=== PATIENT | female | born 1985 | race Caucasian/White ===

== ENCOUNTER 2020-10-24 17:17 | Emergency (ER) | payer OTHER, SELFPAY ==
[2020-10-24 17:48] VITALS: BP 111/87; PULSE 66; RESP 18; TEMP 36; O2SAT 97; BMI 28.7
--- NOTE | 2020-10-24 18:07 | HMH.EDUTC ---
[facility] [place]: [place]al syndrome Disposition: Home, Self-Care Condition on Discharge: Good Instructions: DI for COVID-19 (Suspected or Confirmed ), Preventing the Spread of Coronavirus Discharge Instructions Additional Instructions: Avoid contact with the offending substance (poison delvin). Don't start the oral steroids until tomorrow. Don't put the topical steroids (triamcinolone) on your face or your groin. Follow up with your regular doctor. GO TO THE ER FOR ANY WORSENING SYMPTOMS OR CONCERNS Prescriptions: Brompheniramine/Pseudoephed/Dm [Bromfed Dm Cough Syrup] 5 ml PO Q6HP PRN #240 ml PRN Reason: Cough Transmission Status: Received by [facility] Ondansetron [Zofran 4mg ODT] 4 mg PO DAILYP PRN #12 tab PRN Reason: Nausea Transmission Status: Received by [facility] Referrals: Sahara Benoit PA [Primary Care Provider] - Time of Disposition: 18:12 Medical Decision Making - Medical Records Medical records reviewed: No: I reviewed the patient's medical records. - Yazan Inquiry Pt receiving controlled substance: No Vital Signs: 10/24/20 17:48 Temperature 96.8 F L Temperature Source Oral Pulse Rate [Apical] 66 Respiratory Rate 18 Blood Pressure [Right Arm] 111/87 Blood Pressure Mean [Right Arm] 95 Blood Pressure Source [Right Arm] Automatic Cuff Blood Pressure Position [Right Arm] Supine 02 Sat by Pulse Oximetry 97 Oxygen Delivery Method Room Air - Lab Data Lab Results 10/24/20 17:34: SARS-CoV-2 (PCR) Detected A, Influenza A Untype (PCR) Not detected, Influenza Type B (PCR) Not detected [facility] [place] - General Stated complaint: exposes,Cough,CONDE,Weekness,congesion Time Seen by Provider: 10/24/20 18:07 Mode of Arrival: Ambulatory Source of Information: Patient Limitations: No Limitations Description of Symptoms (Recalled from Triage Doc. by RN): loss of taste and smell, cough, headache HEENT Symptoms (Recalled from RN notes): Yes Resp Symptoms (Recalled from RN notes): No Skin Symptoms (Recalled from RN notes): No MS Symptoms (Recalled from RN notes): No Functional Status (Recalled from RN notes): na - History of Present Illness Provider Complaint: She states that she has felt bad since yesterday evening. She was exposed to covid-19 about 5 days ago. She c/o altered sense of taste and smell, scratchy throat, fatigue and body aches. She has been vaccinated against covid. - Related Data Home Medications Medication Instructions Recorded Confirmed levothyroxine 25 mcg tablet 25 mcg PO ONCE tab 03/08/17 12/05/19 norethindrone 1 mg-e. estradiol 20 1 tab PO QDAY 03/08/17 12/05/19 mcg (24)-iron 75 mg (4) chew tablet cetirizine 10 mg tablet 10 mg PO DAILY 02/07/19 12/05/19 Previous Rx's Medication Instructions Recorded Brompheniramine/Pseudoephed/Dm 5 ml PO Q6HP PRN #240 ml 10/24/20 [Bromfed Dm Cough Syrup] Ondansetron [Zofran 4mg ODT] 4 mg PO DAILYP PRN #12 tab 10/24/20 Allergies Allergy/AdvReac Type Severity Reaction Status Date / Time No Known Allergies Allergy Verified 12/05/19 17:47 - Worker's Comp Is this a Worker's Comp case?: No [facility] History - Hepatitis A Screen Drug use history?: No High risk sexual behaviors?: No History of sexually transmitted infection?: No Currently employed?: No Childcare worker?: No Do you have indoor plumbing?: Yes Do you have electricity?: Yes Attestation statement:: This patient has been screened for Hepatitis A risk factors. I have reviewed the patient's past medical history: Yes Other Medical History: Reports: Hypothyroidism Other Surgeries: Yes: No Previous Surgery - Social History Smoking Status: Never smoker Alcohol Intake: current Alcohol Intake Frequency:: holidays/special occasions only Substance Use Type: denies use Occupational Status: employed Family Hx:: Thyroid Disorder, Hypertension, Cancer, Diabetes, Heart Attack, Coronary Artery Disease ROS [place]
[2020-10-24 18:21] LABS: Influenza A, PCR Not Detected (NotDetected); Influenza B, PCR Not Detected (NotDetected)
[2020-10-24 18:49] LABS: Coronavirus 19, PCR Detected (NotDetected)
[2020-10-24 19:11] VITALS: BP 111/87; PULSE 66; RESP 18; TEMP 36; O2SAT 97
== END 2020-10-24 19:13 | disposition home or self-care (01) ==
PROVIDERS: Emergency Provider Nurse Practitioner Family; PCP Physician Assistant
DX: U07.1 COVID-19 (principal); B34.9 Viral infection, unspecified
CPT/HCPCS: 99202; C9803; G0463; U0003; U0005

== ENCOUNTER → 2021-07-22 08:11 | Outpatient (CLI) | payer OTHER, SELFPAY ==
[2021-07-22 08:35] LABS: Basophils # 0.3 K/mm3 (0-0.2); Basophils % 3.7 % (0.1-2.0); Eosinophils # 0.4 K/mm3 (0.0-0.4); Eosinophils % 4.1 % (0.1-12.0); Hemoglobin 14.9 g/dL (12.2-16.2); Lymphocytes # 3.4 K/mm3 (0.7-4.5); Lymphocytes % 37.6 % (10-50); Mean Corpuscular HGB Conc 34.7 g/dL (31.8-35.4); Mean Corpuscular Hemoglobin 29.9 pg (27.0-31.2); Mean Corpuscular Volume 86.2 fl (81-99); Mean Platelet Volume 8.1 fl (7.4-10.4); Monocytes # 0.5 K/mm3 (0.1-1.0); Neutrophils # 4.5 K/mm3 (1.8-7.8); Neutrophils % 49.7 % (37.0-80.0); Platelet Count 328 K/mm3 (142-424); Red Blood Count 4.99 M/mm3 (4.20-5.40)
[2021-07-22 09:53] LABS: Alanine Aminotransferase 32 U/L (12-78); Albumin Level 4.3 g/dl (3.5-5.0); Albumin/Globulin Ratio 1.4 (1.1-1.8); Alkaline Phosphatase 95 U/L (38-126); Anion Gap 12.3 mEq/L (5-15); Aspartate Amino Transferase 39 U/L (14-36); Bilirubin,Total 0.5 mg/dl (0.2-1.3); Blood Urea Nitrogen 11 mg/dl (7-17); Calcium 9.6 mg/dl (8.4-10.2); Carbon Dioxide 25 mmol/L (22.0-30.0); Chloride 104 mmol/L (98-107); Estimated Glomerular Filt Rate 72 ml/min (>60); GFR (African American) 87 ML/MIN (>60); Glucose 98 mg/dl (74-100); Potassium 4.3 mmoL/L (3.5-5.1); Sodium 137 mmol/L (136-145); Total Protein,Serum 7.3 g/dl (6.3-8.2)
[2021-07-22 10:07] LABS: Free T4 (Free Thyroxine) 1.17 ng/dl (0.78-2.19)
[2021-07-22 10:09] LABS: 25-OH Vitamin D, Total 39.1 ng/mL (30-100)
[2021-07-22 10:22] LABS: Thyroid Stimulating Hormone 2.86 uIU/mL (0.465-4.68)
[2021-07-23 11:42] LABS: Thyroid Peroxidase Antibodies 14 IU/mL (0-34)
[2021-07-23 23:23] LABS: Thyroglobulin Level <1.0 IU/mL (0.0-0.9)
[2021-07-26 15:22] LABS: C1 Esterase Inhibitor 38 mg/dL (21-39)
[2021-07-26 17:10] LABS: C1 Est.Inhib.Funct. 96 (.)
[2021-07-29 11:12] LABS: Immunoglobulin E, Total 14 IU/mL (6-495)
[2021-08-11 07:49] LABS: Antinuclear Antibodies (ANA) Negative
== END ==
PROVIDERS: PCP Family Medicine; Visit Provider Nurse Practitioner
DX: L50.9 Urticaria, unspecified (principal); Z79.899 Other long term (current) drug therapy
CPT/HCPCS: 36415; 80053; 82306; 82785; 83520; 84439; 84443; 85025; 86038; 86161; 86352; 86376; 86800

== ENCOUNTER 2022-01-03 15:30 | Emergency (ER) | payer OTHER, SELFPAY ==
--- NOTE | 2022-01-03 17:02 | EXP.UTC ---
Discharge Plan Disposition Patient Disposition: Home, Self-Care Condition: Good Prescriptions Prescriptions: New azithromycin [Zithromax] 250 mg tablet 250 mg PO UD DOSE PK Qty: 6 0RF Rx Instructions: Take two (2) tablets today, then one (1) tablet days #2 thru #5 benzonatate [benzonatate] 100 mg capsule 100 mg PO TIDP PRN (Reason: Cough) Qty: 30 0RF methylprednisolone 4 mg Tablets,Dose Pack 4 mg PO DIRECTED Qty: 21 0RF No Action levothyroxine [Synthroid] 25 mcg tablet 25 mcg PO ONCE norethindrone-e.estradiol-iron [Mibelas 24 Fe] 1 mg-20 mcg(24) /75 mg (4) tablet,chewable 1 tab PO QDAY cetirizine [Zyrtec] 10 mg tablet 10 mg PO DAILY ondansetron 4 MG tablet,disintegrating 4 mg PO DAILYP PRN (Reason: Nausea) Qty: 12 0RF njhsjbhaeixzcvb-kfqtraard-ZG 118 ML syrup 5 ml PO Q6HP PRN (Reason: Cough) Qty: 240 0RF Referrals Follow up/Referrals: Sahara Benoit PA [Primary Care Provider] - See instructions Activity Restrictions/Add. Instructions Additional Instructions/Restrictions: Drink plenty of fluids. Take tylenol or ibuprofen for pain or fever. Take the medications as directed. Follow up with your regular doctor. GO TO THE ER FOR ANY WORSENING SYMPTOMS Clinical Impressions Clinical Impression: Viral syndrome Stand Alone Forms Stand Alone Forms: Work/School Release Instructions Patient Instructions: DI for Viral Syndrome, DI for Acute Bronchitis Discharge ED Provider: Hiram Coyle [facility] General Stated complaint: fever/chills, cough, body aches Time Seen by Provider: 01/03/22 17:00 History of Present Illness Provider Complaint: She states that she has felt bad since this morning. At this time she has worsening body aches, chills, sore throat, and malaise. Related Data Home Medications Medication Instructions Recorded Confirmed levothyroxine 25 mcg tablet 25 mcg PO ONCE 03/08/17 12/05/19 (Synthroid) norethindrone 1 mg-e. estradiol 20 1 tab PO QDAY 03/08/17 12/05/19 mcg (24)-iron 75 mg (4) chew tablet (Mibelas 24 Fe) cetirizine 10 mg tablet (Zyrtec) 10 mg PO DAILY 02/07/19 12/05/19 Previous Rx's Medication Instructions Recorded mgbzpdyiclkdxyr-avrmochicccwhcd-BL 5 ml PO Q6HP PRN Cough #240 mL 10/24/20 2 mg-30 mg-10 mg/5 mL oral syrup ondansetron 4 mg disintegrating 4 mg PO DAILYP PRN Nausea #12 tabs 10/24/20 tablet azithromycin 250 mg tablet 250 mg PO UD DOSE PK #6 tabs 01/03/22 (Zithromax) benzonatate 100 mg capsule 100 mg PO TIDP PRN Cough #30 caps 01/03/22 methylprednisolone 4 mg tablets in 4 mg PO DIRECTED #21 tabs 01/03/22 a dose pack Allergies Allergy/AdvReac Type Severity Reaction Status Date / Time No Known Allergies Allergy Verified 01/03/22 17:15 PFSH PFSH Social History Smoking Status: Never smoker alcohol intake: current substance use type: denies use current occupational status: employed Travel in the last 8 weeks: None ROS Obtained: Yes All systems reviewed & no additional complaints except as documented Constitutional Constitutional: Reports chills and Reports fever(s) Eyes Eyes: Denies eye discharge ENT Ears, Nose, Mouth, and Throat: Reports as per HPI Cardiovascular Cardiovascular: Denies chest pain Respiratory Respiratory: Denies chest congestion and Reports cough Gastrointestinal Gastrointestingal: Reports nausea; Denies abdominal pain, constipation, cramping, diarrhea or vomiting Musculoskeletal Musculoskeletal: Denies arthralgias Integumentary/Breasts Skin/Breast: Denies rash Neurologic Neurologic: Denies paresthesias Physical Exam General General appearance: alert and in no apparent distress Head Head exam: atraumatic, normocephalic and normal inspection Eye Eye exam: Present normal appearance, PERRL and EOMI ENT ENT exam: Present normal exam, normal oropharynx, mucous membranes moist, TM's
[2022-01-03 17:13] VITALS: BP 133/94; PULSE 90; RESP 18; TEMP 37.1; O2SAT 100; BMI 29.7
[2022-01-03 17:35] VITALS: BP 133/94; PULSE 90; RESP 18; TEMP 37.1
[2022-01-03 17:42] LABS: Adenovirus,PCR Not Detected (NotDetected); Bordetella Pertussis Not Detected (NotDetected); Chlamydophila Pneumoniae, PCR Not Detected (NotDetected); Coronavirus 19, PCR Not Detected (NotDetected); Coronavirus 229E Not Detected (NotDetected); Coronavirus NL63 Not Detected (NotDetected); Coronavirus OC43 Not Detected (NotDetected); Coronovirus HKU1,PCR Not Detected (NotDetected); Human Metapneumovirus Not Detected (NotDetected); Influenza A, PCR Not Detected (NotDetected); Influenza AH1, PCR Not Detected (NotDetected); Influenza AH3,PCR Not Detected (NotDetected); Influenza B, PCR Not Detected (NotDetected); Mycoplasma Pneumoniae, PCR Not Detected (NotDetected); Parainfluenza 1, PCR Not Detected (NotDetected); Parainfluenza 2, PCR Not Detected (NotDetected); Parainfluenza 3, PCR Not Detected (NotDetected); Parainfluenza 4, PCR Not Detected (NotDetected); Respiratory Syncytial Virus Not Detected (NotDetected)
[2022-01-04 14:07] LABS: Rhinovirus/Enterovirus Detected (NotDetected)
[2022-01-04 14:08] LABS: Influenza AH1, 2009 Detected (NotDetected)
--- NOTE | 2022-01-04 17:16 | PC.NURSE ---
patient informed about respiratory panel results
== END 2022-01-03 17:38 | disposition home or self-care (01) ==
PROVIDERS: Emergency Provider Nurse Practitioner Family; PCP Physician Assistant
DX: J10.1 Influenza due to other identified influenza virus with other respiratory manifestations (principal); B34.1 Enterovirus infection, unspecified
CPT/HCPCS: 87581; 87632; 87798; 99212; C9803; G0463; U0003; U0005